=== PATIENT | female | born 1970 | race Two or more races ===

== ENCOUNTER 2024-09-11 14:16 | Emergency (ER) | payer MEDICAID ==
[~2024-09-11] VITALS: Ht 162.6 cm; Wt 72.0 kg
[2024-09-11 15:59] VITALS: BP 115/76; PULSE 65; RESP 17; TEMP 98; O2SAT 98
== END 2024-09-11 15:55 | disposition home or self-care (01) ==
LOC: ER 14:17
DX: S60.211A Contusion of right wrist, initial encounter (principal); W22.03XA Walked into furniture, initial encounter; Y93.89 Activity, other specified; Y92.89 Other specified places as the place of occurrence of the external cause; Y99.8 Other external cause status
CPT/HCPCS: 29125; 73110; 99283